=== PATIENT | male | born 1960 | race Asian ===

== ENCOUNTER 2018-12-16 04:23 | Emergency (ER) | payer OTHER ==
--- NOTE | 2018-12-16 04:49 | ED Physician Documentation ---
PD HPI ABD PAIN - Stated complaint Stated Complaint: ABD PX - Chief complaint Chief Complaint: Abd Pain - History obtained from History obtained from: Patient, Family - History of Present Illness Timing - onset: Enter time (1899), Yesterday Timing - duration: Hours Timing - details: Abrupt onset, Still present Quality: Sharp, Pain Location: All over / everywhere Improved by: Laying still Worsened by: Position Associated symptoms: Constipation. No: Nausea, Vomiting Similar symptoms before: Diagnosis (constipation) Recently seen: Not recently seen - Additional information Additional information: 58-year-old male developed some abdominal pain generalized and distention of his abdomen about 7:00 in the evening. He was unable to go to work and on the way home from his attempt to go to work he got some Dulcolax at the [address] and he took 2 of those. At about 3:00 in the morning he had persistence of the pain and he has taken 3 more Dulcolax. He has not had any relief with this and he is come to the emergency department unable to sleep. He rates the pain is high and constant. He does not have tenderness. Review of Systems Constitutional: denies: Fever Eyes: denies: Decreased vision Ears: denies: Ear pain Nose: denies: Rhinorrhea / runny nose, Congestion Throat: denies: Sore throat Cardiac: denies: Chest pain / pressure, Palpitations Respiratory: denies: Dyspnea, Cough GI: reports: Abdominal Pain, Constipation. denies: Nausea, Vomiting, Diarrhea : denies: Dysuria, Frequency PD PAST MEDICAL HISTORY - Allergies Allergies/Adverse Reactions: Allergies Allergy/AdvReac Type Severity Reaction Status Date / Time No Known Drug Allergies Allergy Verified 12/16/18 04:46 PD ED PE NORMAL - Vitals Vital signs reviewed: Yes (low grade fever and mild hypertension ) - General General: Alert and oriented X 3, No acute distress, Well developed/nourished - HEENT HEENT: Atraumatic, PERRL, EOMI - Neck Neck: Supple, no meningeal sign - Cardiac Cardiac: RRR, No murmur - Respiratory Respiratory: No respiratory distress, Clear bilaterally - Abdomen Abdomen: Normal bowel sounds, Soft, Non tender, Non distended, No organomegaly - Back Back: No CVA TTP, No spinal TTP - Derm Derm: Normal color, Warm and dry, No rash - Extremities Extremities: No deformity, No edema - Neuro Neuro: Alert and oriented X 3, 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, No motor deficit, No sensory deficit, Normal speech Eye Opening: Spontaneous Motor: Obeys Commands Verbal: Oriented GCS Score: 15 - Psych Psych: Normal mood, Normal affect Results - Vitals Vitals: Vital Signs - 24 hr 12/16/18 12/16/18 12/16/18 04:30 04:46 06:44 Temperature 37.7 C H Heart Rate 55 L 55 L 58 L Respiratory 15 17 17 Rate Blood Pressure 131/75 H 131/75 H 111/70 O2 Saturation 98 94 92 Oxygen O2 Source Room air - Labs Labs: Laboratory Tests 12/16/18 12/16/18 05:31 05:31 WBC 11.1 H RBC 4.67 L Hgb 14.2 Hct 42.1 MCV 90.1 MCH 30.4 MCHC 33.7 RDW 12.6 Plt Count 158 MPV 9.6 Neut # (Auto) 9.4 H Lymph # (Auto) 1.0 L Starke # (Auto) 0.6 Eos # (Auto) 0.0 Baso # (Auto) 0.0 Absolute Nucleated RBC 0.00 Nucleated RBC % 0.0 Sodium 136 Potassium 3.7 Chloride 100 L Carbon Dioxide 26 Anion Gap 10.0 BUN 19 Creatinine 1.0 Estimated GFR (MDRD) 77 L Glucose 166 H Calcium 9.7 Total Bilirubin 1.1 H AST 31 ALT 24 Alkaline Phosphatase 45 Total Protein 7.3 Albumin 4.4 Globulin 2.9 Albumin/Globulin Ratio 1.5 Lipase 27 - Rads (name of study) abd 1 view Radiology: Prelim report reviewed (Impression: 1. Moderate amount of stool in the colon. Early distention of a few loops of proximal small bowel.), EMP read indepedently, See rad report CT ab/pel w Radiology: Prelim report reviewed (Impression: Cholelithiasis, with pericholecystic inflammation, suspicious for acute cholecystitis. No evidence of biliary obstruction.), EMP read indepedently, See rad report abd u/s Radiology: EMP read contemporaneously (2mm wall, no stones, polyps and normal CBD) Procedures - Bedside sono Bedside sono by EMP: With use of bedside ultrasound the gallbladder is imaged there is a poor quality to the image secondary to underlying bowel gas and the position of the gallbladder itself. PD MEDICAL DECISION MAKING - ED course Complexity details: reviewed old records, reviewed results, re-evaluated patient, considered differential, d/w patient, d/w family ED course: 58-year-old male with acute abdominal pain and distention feels he is c onstipated and his pain is constant and steady. It is bad pain he says it is about a 10 out of 10 and he has been not able to go to work. On examination he has no significant tenderness and I am concerned about this pain out of proportion to examination. I did examine both kidneys for hydronephrosis and did not find this and a CT scan of the abdomen pelvis with contrast is undertaken. This shows some inflammation around the gallbladder and stones. The patient is not constipated. The stomach is full. He gives history of eating too much of a favorite food and this happens when he does this but it has never been this bad. On my exam prior to any medication being given I was not able to elicit any specific tenderness and this does not correlate with cholecyctits. Ultrasound is remarkable only for 3 polyps, no stones, normal wall and CBD. I suspect his pain is due entirely to gluttony. Departure - Departure Disposition: Home, Self Care Clinical Impression: Gluttony Instructions: ED Abdominal Pain Unkn Cause Male Follow-Up: JAVID Fuller [Provider Group] Comments: Today it appears the pain you have is related to overeating. We found on your CT scan that your stomach was full and distended and there was no evidence of constipation. Your gallbladder did look abnormal on the CAT scan but looked well on the ultrasound. In the future when you encounter this favorite food of yours ---- eat less of it.
--- NOTE | 2018-12-16 05:10 | XRAY Report ---
Reason: distention pain ? stool load Procedure Date: 12/16/2018 Accession Number: [id number] / [id number] Procedure: XR - Abdomen 1 View X-Ray CPT Code: 76662 FULL RESULT: EXAM: ABDOMEN RADIOGRAPHY EXAM DATE: 12/16/2018 05:03 AM. CLINICAL HISTORY: Distention pain ? Stool load. COMPARISON: None. TECHNIQUE: 1 view. FINDINGS: Bowel Gas Pattern: There is a moderate amount of stool in the colon. There are a few loops of slightly distended proximal small bowel. Other: There is no free intra-abdominal air. IMPRESSION: 1. Moderate amount of stool in the colon. 2. Early distention of a few loops of proximal small bowel. [facility]
[2018-12-16] MEDS ORDERED: LIDOCAINE VISCOUS 2% 15 ML UDC MM STA (05:30)
[2018-12-16] MEDS ORDERED: MAG HYDROX/AL HYDROX/SIMETH 30 ML UDC PO STA (05:31)
[2018-12-16] MEDS ORDERED: IOVERSOL 320 100 ML VIAL IVP ONE ×2 (05:43→06:24)
[2018-12-16] MEDS ORDERED: KETOROLAC 30 MG/ML VIAL IVP STA (05:50)
[2018-12-16 05:54] LABS: BASOPHILS % (AUTO) 0.4 %; HGB - HEMOGLOBIN 14.2 g/dL (14.0-18.0); LYMPHOCYTES % (AUTO) 8.9 %; MEAN CORPUSCULAR HEMOGLOBIN 30.4 pg (27.0-31.0); MEAN CORPUSCULAR HGB CONC 33.7 g/dL (32.0-36.0); MEAN CORPUSCULAR VOLUME 90.1 fL (80.0-94.0); MEAN PLATELET VOLUME 9.6 fL (7.4-11.4); MONOCYTES # (AUTO) 0.6 10^3/uL (0.0-1.0); MONOCYTES % (AUTO) 5.7 %; NEUTROPHILS # (AUTO) 9.4 10^3/uL (1.5-6.6); NEUTROPHILS % (AUTO) 84.6 %; PLT - PLATELET COUNT 158 10^3/uL (130-450); RED BLOOD COUNT 4.67 10^6/uL (4.70-6.10); RED CELL DISTRIBUTION WIDTH 12.6 % (12.0-15.0); WHITE BLOOD COUNT 11.1 x10^3/uL (4.8-10.8)
[2018-12-16 06:03] LABS: ALBUMIN 4.4 g/dL (3.2-5.5); ALBUMIN/GLOBULIN RATIO 1.5 (1.0-2.2); BILIRUBIN,TOTAL 1.1 mg/dL (0.2-1.0); CALCIUM 9.7 mg/dL (8.5-10.3); TOTAL PROTEIN 7.3 g/dL (6.7-8.2)
--- NOTE | 2018-12-16 06:38 | CT Report ---
Reason: general abdominal pain distention Procedure Date: 12/16/2018 Accession Number: [id number] / [id number] Procedure: CT - Abdomen/Pelvis W CPT Code: FULL RESULT: EXAM: CT ABDOMEN AND PELVIS EXAM DATE: 12/16/2018 06:25 AM. CLINICAL HISTORY: General abdominal pain distention. COMPARISONS: None. TECHNIQUE: Routine helical CT imaging was performed through the abdomen and pelvis. IV contrast: OPTI 320 100ML. Enteric contrast: No. Reconstructions: Coronal and sagittal. In accordance with CT protocol optimization, one or more of the following dose reduction techniques were utilized for this exam: automated exposure control, adjustment of mA and/or KV based on patient size, or use of iterative reconstructive technique. FINDINGS: Lung Bases: Dependent atelectasis. Liver: Diffuse fatty infiltration. Gallbladder/Bile Ducts: Paracholecystic inflammation, with small calculi in the neck gallbladder, suspicious for acute cholecystitis. Spleen: Normal. Pancreas: Normal. Adrenal Glands: Normal. Kidneys: Normal. No masses or hydronephrosis. Peritoneal Cavity/Bowel: Normal. No free fluid, free air or adenopathy. No masses or acute inflammatory process. The appendix is well visualized and normal. Pelvic Organs: Normal. The bladder and visualized pelvic organs are within normal limits. Vasculature: No aneurysms or other significant abnormality. Bones: No significant abnormality. Other: None. IMPRESSION: Cholelithiasis, with paracholecystic inflammation, suspicious for acute cholecystitis. No evidence of biliary obstruction. [facility]
[2018-12-16 06:45] VITALS: BP 111/70
--- NOTE | 2018-12-16 08:17 | Ultrasound Report ---
Reason: abdominal pain gallstones Procedure Date: 12/16/2018 Accession Number: [id number] / [id number] Procedure: US - Abdomen Limited CPT Code: FULL RESULT: EXAM: ABDOMEN ULTRASOUND LIMITED, RUQ EXAM DATE: 12/16/2018 07:39 AM. CLINICAL HISTORY: Abdominal pain. Gallstones. Hypertension. Diabetes. COMPARISON: ABDOMEN/PELVIS W/ 12/16/2018 6:12 AM. TECHNIQUE: Real-time scanning was performed with static images obtained. FINDINGS: Liver: Echogenic hepatic parenchyma. No hepatic lesions. No intrahepatic ductal dilatation. The liver measures 17.8 cm. Main portal vein flow: Hepatopetal. Gallbladder: 3.5 mm gallbladder polyp is noted toward the fundus of the gallbladder. The gallbladder neck is not optimally visualized in particular the area where the calculi as seen on recent CT located. Per video effects editor, the patient is nontender over the gallbladder although the patient is currently on pain medication. No gallbladder wall thickening. Biliary System: CBD measures 6 mm. No intrahepatic or extrahepatic ductal dilatation. Other: Where visualized the pancreas is unremarkable. The entire pancreas is not visualized. Right kidney is normal in contour and echotexture measures 11.7 cm. No hydronephrosis. IMPRESSION: 1. Hepatic steatosis. 2. 3.5 mm gall bladder polyp. Gallbladder neck not optimally visualized and therefore the calculi seen in the gallbladder neck on the recent CT are not well visualized sonographically. 3. No biliary ductal dilatation. RADIA
== END 2018-12-16 08:02 | disposition home or self-care (01) ==
LOC: ED 04:23
DX: K31.89 Other diseases of stomach and duodenum (principal); R63.2 Polyphagia
CPT/HCPCS: 36415; 74018; 74177; 76705; 80053; 83690; 85025; 96374; 99282; 99284; A9270; Q9967